=== PATIENT | female | born 1985 | race Caucasian/White ===

== ENCOUNTER 2019-03-20 06:57 | Emergency (ER) | payer OTHER, MEDICAID ==
[~2019-03-20] VITALS: Ht 157.5 cm; Wt 81.7 kg
[2019-03-20] MEDS ORDERED: BRIVIACT PO (07:03)
[2019-03-20] MEDS ORDERED: LAMICTAL200 MG PO (07:04)
[2019-03-20] MEDS ORDERED: ATIVAN1 M1 PO (07:04)
[2019-03-20] MEDS ORDERED: TRAMADOL 50 MG50 MG PO (08:39)
[2019-03-20] MEDS ORDERED: FLEXERIL PO (08:39)
[2019-03-20 08:49] VITALS: BP 117/78
== END 2019-03-20 08:49 | disposition home or self-care (01) ==
LOC: M.ERS 06:57
DX: S16.1XXA Strain of muscle, fascia and tendon at neck level, initial encounter (principal); Z98.51 Tubal ligation status; V89.2XXA Person injured in unspecified motor-vehicle accident, traffic, initial encounter; Y93.89 Activity, other specified; Y92.89 Other specified places as the place of occurrence of the external cause; Y99.8 Other external cause status